=== PATIENT | male | born 1945 | race Caucasian/White ===

== ENCOUNTER 2021-04-18 16:24 | Inpatient (IN) | payer MEDICARE, OTHER ==
[~2021-04-18] VITALS: Ht 185.4 cm; Wt 78.6 kg
[~2021-04-18 16:24] MED LIST: DRON2.5C18 PO; ENOX40SY7 SQ; METO-384 PO; SIMV40TA PO
[2021-04-18] MEDS ORDERED: normal saline 1000ml 1,000 ML IV ONE ×2 (16:50→17:55)
[2021-04-18] MEDS ORDERED: pantoprazole 40 MG vial IV ONE (17:00)
[2021-04-18 17:24] LABS: EOSINOPHILS % (AUTO) 0.3 % (0-6); HEMOGLOBIN 13.5 g/dl (14.0-17.9); MONOCYTES # (AUTO) 0.3 X10'3 (0-0.9); NEUTROPHILS # (AUTO) 1.4 X10'3 (1.8-7.7); WHITE BLOOD COUNT 2.9 X10'3 (4.5-11.0)
[2021-04-18 17:25] LABS: BASOPHILS % (AUTO) 0 % (0-1); LYMPHOCYTES # (AUTO) 1.2 X10'3 (1.1-4.8); LYMPHOCYTES % (AUTO) 41.4 % (21-51); MEAN CORPUSCULAR HEMOGLOBIN 31.8 PG (27.0-31.0); MEAN CORPUSCULAR HGB CONC 33.7 g/dL (33.0-36.5); MEAN CORPUSCULAR VOLUME 94.2 FL (78-98); MEAN PLATELET VOLUME 8.8 FL (7.4-10.4); MONOCYTES % (AUTO) 11.7 % (2-12); NEUTROPHILS % (AUTO) 46.6 % (42-75); PLATELET COUNT 282 X10'3 (140-440); RED BLOOD COUNT 4.25 X10'6 (4.70-6.10); RED CELL DISTRIBUTION WIDTH 14.8 % (11.5-14.5)
[2021-04-18 17:39] LABS: ALANINE AMINOTRANSFERASE 18 U/L (12-78); ALBUMIN 1.8 G/DL (3.4-5.0); ALBUMIN/GLOBULIN RATIO 0.5 (1.1-1.5); ALKALINE PHOSPHATASE 67 IU/L (46-116); ANION GAP 10 (8-16); ASPARTATE AMINO TRANSFERASE 26 U/L (10-37); BILIRUBIN,TOTAL 0.7 MG/DL (0.1-1.0); BLOOD UREA NITROGEN 33 MG/DL (7-18); BUN/CREATININE RATIO 19.8 (5.4-32.0); CALCIUM 7.8 MG/DL (8.5-10.1); CHLORIDE 102 MMOL/L (99-107); CREATININE 1.67 MG/DL (0.60-1.10); GLUCOSE 127 MG/DL (70-104); SODIUM 135 MMOL/L (135-145); TOTAL CARBON DIOXIDE 22.8 MMOL/L (24-32); TOTAL PROTEIN 5.4 G/DL (6.4-8.2); eGFR 40 ML/MIN
[2021-04-18 17:42] LABS: POTASSIUM 3.7 MMOL/L (3.5-5.1)
[2021-04-18] MEDS ORDERED: vancomycin/NS 1 GM ADD-VANTAGE 250 ML IV ONE (17:55)
[2021-04-18] MEDS ORDERED: azithromycin/NS 500mg/250ml 250 ML IV ONE (17:55)
[2021-04-18] MEDS ORDERED: CefTRIAXone/D5W-Rocephin 1gm 50 ML IV ONE (17:55)
[2021-04-18] MEDS ORDERED: iohexol 300mg/ml 100ml inj. ONE (17:59)
[2021-04-18 18:39] LABS: PLATELET ESTIMATE NORMAL; TOTAL CELLS COUNTED 100
[2021-04-18 18:56] LABS: CLARITY,URINE SLIGHTLY CLOUDY (Clear); COLOR,URINE YELLOW (Yellow); GLUCOSE, URINE NEGATIVE (Neg); KETONES,URINE NEGATIVE (Neg); LEUKOCYTE ESTERASE ,URINE NEGATIVE (Neg); NITRITES, URINE NEGATIVE (Neg); OCCULT BLOOD,URINE NEGATIVE (Neg); PH,URINE 5.5 (4.8-8.0); PROTEIN,URINE TRACE mg/dl (Neg); UROBILINOGEN,URINE 0.2 E.U/dL (0.2-1.0)
[2021-04-18 19:10] LABS: UA COLLECTION TYPE NON-SPECIFIED
[2021-04-18 19:15] LABS: BACTERIA,URINE NONE SEEN /HPF (Neg); MUCUS STRANDS FEW /LPF (Neg); RBC,URINE NONE SEEN /HPF (0-2); SQUAMOUS EPITHELIAL CELL,UR FEW /LPF (FEW); WBC,URINE 0-4 /HPF (0-4)
[2021-04-18 19:16] LABS: COARSE GRANULAR CAST 0-3 /LPF (NEGATIVE)
[2021-04-18] MEDS ORDERED: PROC10TA10 PO (19:52)
[2021-04-18] MEDS ORDERED: METO25TA6 PO (19:52)
[2021-04-18] MEDS ORDERED: METH500T4 PO (20:03)
[2021-04-18] MEDS ORDERED: FERR325T32 PO (20:03)
[2021-04-18] MEDS ORDERED: APIX5TAB3 PO (20:03)
[2021-04-18] MEDS ORDERED: MECO10005 (20:03)
[2021-04-18] MEDS ORDERED: morphine 2 MG/ML inj. syringe IV PRN (20:10)
[2021-04-18] MEDS ORDERED: tylenol #3 (20:10)
[2021-04-18] MEDS ORDERED: potassium Cl 20 mEq SR tablet PO PRN ×2 (20:10)
[2021-04-18] MEDS ORDERED: acetaminophen 325mg tablet PO PRN ×2 (20:10)
[2021-04-18] MEDS ORDERED: ondansetron/PF 4mg/2ml inj IV PRN (20:10)
[2021-04-18] MEDS: K, MAG and/or Phos replacement - Verify level? MC SCH (20:10)
[2021-04-18] MEDS ORDERED: magnesium hydroxide 30ml (MOM) UD suspension PO PRN (20:10)
[2021-04-18] MEDS ORDERED: LIDOcaine/PRILOcaine 5gm cream TP ONE (20:10)
[2021-04-18] MEDS: metroNIDAZOLE-Flagyl 500mg/NS 100 ML IV SCH (23:59)
[2021-04-19 03:38] LABS: HEMOGLOBIN 11.5 g/dl (14.0-17.9); LYMPHOCYTES # (AUTO) 0.6 X10'3 (1.1-4.8); PLATELET COUNT 232 X10'3 (140-440); WHITE BLOOD COUNT 2.6 X10'3 (4.5-11.0)
[2021-04-19 03:40] LABS: BASOPHILS % (AUTO) 0 % (0-1); EOSINOPHILS % (AUTO) 0.3 % (0-6); HEMATOCRIT 33.5 % (42.0-52.0); LYMPHOCYTES % (AUTO) 21.7 % (21-51); MEAN CORPUSCULAR HEMOGLOBIN 31.7 PG (27.0-31.0); MEAN CORPUSCULAR HGB CONC 34.5 g/dL (33.0-36.5); MEAN CORPUSCULAR VOLUME 91.8 FL (78-98); MEAN PLATELET VOLUME 7.9 FL (7.4-10.4); MONOCYTES # (AUTO) 0.4 X10'3 (0-0.9); NEUTROPHILS # (AUTO) 1.7 X10'3 (1.8-7.7); RED BLOOD COUNT 3.65 X10'6 (4.70-6.10); RED CELL DISTRIBUTION WIDTH 14.9 % (11.5-14.5)
[2021-04-19 03:58] LABS: ALANINE AMINOTRANSFERASE 17 U/L (12-78); ALBUMIN 1.4 G/DL (3.4-5.0); ALBUMIN/GLOBULIN RATIO 0.5 (1.1-1.5); ALKALINE PHOSPHATASE 60 IU/L (46-116); ANION GAP 9 (8-16); ASPARTATE AMINO TRANSFERASE 21 U/L (10-37); BILIRUBIN,TOTAL 0.5 MG/DL (0.1-1.0); BLOOD UREA NITROGEN 28 MG/DL (7-18); BUN/CREATININE RATIO 24.8 (5.4-32.0); CALCIUM 7.1 MG/DL (8.5-10.1); CHLORIDE 108 MMOL/L (99-107); CREATININE 1.13 MG/DL (0.60-1.10); GLUCOSE 96 MG/DL (70-104); SODIUM 139 MMOL/L (135-145); TOTAL PROTEIN 4.4 G/DL (6.4-8.2); TROPONIN I < 0.04 NG/ML (0.0-0.05); eGFR 63 ML/MIN
[2021-04-19 04:01] LABS: POTASSIUM 2.6 MMOL/L (3.5-5.1)
[2021-04-19] MEDS ORDERED: potassium Cl 10 mEq/100mL bag IV ONE (04:20)
[2021-04-19 04:21] LABS: LIPASE < 50 U/L (73-393)
[2021-04-19 04:37] LABS: NEUTROPHILS % (MANUAL) 27 % (42-75); TOTAL CELLS COUNTED 100
[2021-04-19 04:38] LABS: BANDS% (MANUAL) 27 % (0-10); LYMPHOCYTES % (MANUAL) 28 % (21-51); METAMYLEOCYTES% (MANUAL) 2 % (0-0); MONOCYTES % (MANUAL) 16 % (2-12); PLATELET ESTIMATE NORMAL
[2021-04-19] MEDS ORDERED: cefepime inj. 1 GM in normal saline 100ml IV soln 100 ML IV SCH (08:00)
[2021-04-19] MEDS: K, MAG and/or Phos replacement - Verify level? MC SCH (08:00)
--- NOTE | 2021-04-19 09:07 | NUR ---
spoke with POA daughter jimbo
[2021-04-19] MEDS ORDERED: ACET-3068 PO (09:40)
--- NOTE | 2021-04-19 09:45 | NUR ---
pt refuses covid swab
[2021-04-19] MEDS: metroNIDAZOLE-Flagyl 500mg/NS 100 ML IV SCH ×2 (09:51→16:39)
[2021-04-19] MEDS ORDERED: CYAN500T46 PO (10:01)
[2021-04-19] MEDS ORDERED: ondansetron/PF 4mg/2ml inj IV PRN (11:05)
[2021-04-19] MEDS ORDERED: HYDROcodone/acetaminophen 5mg/325mg tablet PO PRN (11:05)
[2021-04-19] MEDS ORDERED: potassium Cl 40MEQ/1/2NS 520ml 520 ML IV PRN ×2 (11:05)
[2021-04-19] MEDS ORDERED: magnesium 4gm in 100ml NS 100 ML IV PRN (11:05)
[2021-04-19] MEDS ORDERED: magnesium Cl slow-release 64mg tablet PO PRN (11:05)
[2021-04-19] MEDS ORDERED: acetaminophen 325mg tablet PO PRN ×2 (11:05)
[2021-04-19] MEDS ORDERED: magnesium 2GM in 50ml NS 50 ML IV PRN (11:05)
[2021-04-19] MEDS: normal saline 1000ml 1,000 ML IV SCH (11:23)
[2021-04-19] MEDS ORDERED: proCHLORperazine 10mg tablet PO PRN (11:35)
--- NOTE | 2021-04-19 14:45 | NUR ---
Patient in room ED 5. I have received report from Jace VALLADARES RN and had the opportunity to ask questions and assume patient care.
[2021-04-19 18:02] VITALS: BP 75/37
--- NOTE | 2021-04-19 18:14 | NUR ---
Patient in room PCU 3023. I have received report from Rachana CHAVARRIA and had the opportunity to ask questions and assume patient care.
--- NOTE | 2021-04-19 18:37 | NUR ---
Patient in room PCU 3023. I have received report from Sofia CHAVARRIA and had the opportunity to ask questions and assume patient care.
[2021-04-19] MEDS: K and/or MAG REPLACEMENT MC SCH (20:00)
[2021-04-19] MEDS ORDERED: temazepam 15mg capsule PO PRN (21:00)
[2021-04-19 22:00] VITALS: BP 117/77
[2021-04-19] MEDS: heparin, porcine 5000 units/ml vial SQ SCH (22:02)
[2021-04-19] MEDS: cefepime 1GM/NS ADD-VANTAGE 100 ML IV SCH (22:07)
[2021-04-20] MEDS: metroNIDAZOLE-Flagyl 500mg/NS 100 ML IV SCH ×3 (00:34→16:03)
[2021-04-20 02:00] VITALS: BP 118/73
[2021-04-20] MEDS: potassium Cl 20 mEq SR tablet PO PRN ×3 (03:42→18:05)
[2021-04-20 06:00] VITALS: BP 103/67
--- NOTE | 2021-04-20 06:58 | NUR ---
Patient in room PCU 3023. I have received report from Yamilex CHAVARRIA and had the opportunity to ask questions and assume patient care.
[2021-04-20] MEDS: normal saline 1000ml 1,000 ML IV SCH ×2 (07:05→16:05)
[2021-04-20 07:20] LABS: HEMOGLOBIN 11.3 g/dl (14.0-17.9); RED CELL DISTRIBUTION WIDTH 15.5 % (11.5-14.5)
[2021-04-20 07:22] LABS: HEMATOCRIT 32.7 % (42.0-52.0); MEAN CORPUSCULAR HGB CONC 34.7 g/dL (33.0-36.5); MEAN CORPUSCULAR VOLUME 92.3 FL (78-98); MEAN PLATELET VOLUME 8.3 FL (7.4-10.4); PLATELET COUNT 264 X10'3 (140-440); RED BLOOD COUNT 3.54 X10'6 (4.70-6.10); WHITE BLOOD COUNT 5.9 X10'3 (4.5-11.0)
[2021-04-20 07:48] LABS: ANISOCYTOSIS 1+; PLATELET ESTIMATE NORMAL; TOTAL CELLS COUNTED 100
[2021-04-20] MEDS: cefepime 1GM/NS ADD-VANTAGE 100 ML IV SCH (07:48)
[2021-04-20] MEDS: heparin, porcine 5000 units/ml vial SQ SCH ×2 (07:48→20:00)
[2021-04-20 07:53] LABS: ALANINE AMINOTRANSFERASE 14 U/L (12-78); ALBUMIN 1.3 G/DL (3.4-5.0); ALBUMIN/GLOBULIN RATIO 0.4 (1.1-1.5); ALKALINE PHOSPHATASE 69 IU/L (46-116); ANION GAP 14 (8-16); ASPARTATE AMINO TRANSFERASE 17 U/L (10-37); BILIRUBIN,TOTAL 0.5 MG/DL (0.1-1.0); BLOOD UREA NITROGEN 26 MG/DL (7-18); BUN/CREATININE RATIO 25.5 (5.4-32.0); CALCIUM 7.6 MG/DL (8.5-10.1); CHLORIDE 109 MMOL/L (99-107); CREATININE 1.02 MG/DL (0.60-1.10); GLUCOSE 95 MG/DL (70-104); MAGNESIUM 2.5 MG/DL (1.5-2.4); POTASSIUM 3.4 MMOL/L (3.5-5.1); SODIUM 142 MMOL/L (135-145); TOTAL CARBON DIOXIDE 19.5 MMOL/L (24-32); TOTAL PROTEIN 4.5 G/DL (6.4-8.2); eGFR 71 ML/MIN
[2021-04-20] MEDS: K and/or MAG REPLACEMENT MC SCH ×2 (08:00→20:00)
--- NOTE | 2021-04-20 08:07 | NUR ---
Problems reprioritized. Patient report given, questions answered & plan of care reviewed with Anca CHAVARRIA.
--- NOTE | 2021-04-20 10:44 | NUR ---
spoke with pt's daughter Soraida Shelton via phone call, update given.
[2021-04-20 11:00] VITALS: BP 110/70
--- NOTE | 2021-04-20 13:05 | NUR ---
Malnutrition consult: Pt with h/o colon cancer s/p colectomy and currently receiving chemotherapy admit for hypokalemia and enteritis. Pt reports 14-23 lb wt loss with decreased appetite per malnutrition risk screen with RN. Noted pt recently admitted with a scaled wt range of 147-165 lbs from 12/27-01/06; current bed scaled wt is 147 lbs. Pt seen at bedside reports ~40 lb wt loss since last admit and reports just eating so-so [employer]. Of note, pt reports very poor appetite [employer]BER per H&P. Pt initially on a clear liquid diet documented with 75% PO intake first meal down to 25% PO intake second meal. Diet has just been advanced to full liquids, lunch tray visible at bedside appears untouched though pt states he will attempt to eat. Pt with visible fat and muscle wasting throughout face and clavicles, meeting the minimum of two criteria for malnutrition. Pt agrees to Ensure Enlive during admit as well as shakes and smoothies to optimize PO intake. ONS to be sent pending physician approval in EMR. Pt provided with ONS coupons and RD contact information and encouraged to reach out if needed. Will continue to follow closely. Recommendations: 1) Advance to regular diet as medically indicated 2) Chocolate Ensure Enlive BIDBD, pending physician approval in EMR 3) [place] banana smoothie WB, chocolate shake BIDLD 4) Bowel care per rx 5) Weekly scaled weights Addendum: 04/20/21 at [address] Amended: Links added.
[2021-04-20 15:00] VITALS: BP 115/71
[2021-04-20 17:23] VITALS: BP 115/71
--- NOTE | 2021-04-20 17:37 | NUR ---
PAGER ID: [phone] MESSAGE: re: Alverto Jacobson room [id number] May we d/c accuchecks? Pt's blood glucose via labs 04/19 was 96, today was 95. thank you, Anca [phone]
--- NOTE | 2021-04-20 17:39 | NUR ---
phone call from Dr Katz, orders received to d/c accuchecks. Also advised Dr that pt inadvertently just pulled out his PIV, cath intact. Will have restarted. will continue to monitor.
[2021-04-20] MEDS: lactose-reduced food (Ensure Enlive) - 237ml bottle PO SCH (18:05)
--- NOTE | 2021-04-20 18:33 | NUR ---
Problems reprioritized. Patient report given, questions answered & plan of care reviewed with Hazel CHAVARRIA.
[2021-04-20 23:30] VITALS: BP 131/90
[2021-04-21 06:39] LABS: ALANINE AMINOTRANSFERASE 15 U/L (12-78); ALBUMIN 1.6 G/DL (3.4-5.0); ALBUMIN/GLOBULIN RATIO 0.4 (1.1-1.5); ALKALINE PHOSPHATASE 80 IU/L (46-116); ANION GAP 18 (8-16); ASPARTATE AMINO TRANSFERASE 14 U/L (10-37); BILIRUBIN,TOTAL 0.5 MG/DL (0.1-1.0); BLOOD UREA NITROGEN 29 MG/DL (7-18); BUN/CREATININE RATIO 18.4 (5.4-32.0); CALCIUM 8.4 MG/DL (8.5-10.1); CHLORIDE 113 MMOL/L (99-107); CREATININE 1.58 MG/DL (0.60-1.10); GLUCOSE 166 MG/DL (70-104); MAGNESIUM 2.8 MG/DL (1.5-2.4); SODIUM 147 MMOL/L (135-145); TOTAL CARBON DIOXIDE 15.7 MMOL/L (24-32); TOTAL PROTEIN 5.2 G/DL (6.4-8.2); eGFR 43 ML/MIN
[2021-04-21 06:43] LABS: HEMOGLOBIN 13.5 g/dl (14.0-17.9); MEAN CORPUSCULAR HEMOGLOBIN 31.7 PG (27.0-31.0); MEAN PLATELET VOLUME 8.7 FL (7.4-10.4)
[2021-04-21 06:44] LABS: HEMATOCRIT 39.6 % (42.0-52.0); MEAN CORPUSCULAR VOLUME 93.3 FL (78-98); PLATELET COUNT 378 X10'3 (140-440); RED BLOOD COUNT 4.25 X10'6 (4.70-6.10); RED CELL DISTRIBUTION WIDTH 16.4 % (11.5-14.5); WHITE BLOOD COUNT 11.2 X10'3 (4.5-11.0)
[2021-04-21 07:26] LABS: TOTAL CELLS COUNTED 100
[2021-04-21 07:27] LABS: ANISOCYTOSIS 1+; PLATELET ESTIMATE NORMAL; ROULEAUX 1+; SMUDGE CELLS FEW
[2021-04-21] MEDS: lactose-reduced food (Ensure Enlive) - 237ml bottle PO SCH ×2 (07:30→17:30)
[2021-04-21 08:00] VITALS: BP 125/80
[2021-04-21] MEDS: K and/or MAG REPLACEMENT MC SCH ×2 (08:00→20:00)
[2021-04-21] MEDS: metroNIDAZOLE-Flagyl 500mg/NS 100 ML IV SCH ×2 (08:00→11:03)
[2021-04-21] MEDS: potassium Cl 20 mEq SR tablet PO PRN ×3 (10:55→23:12)
[2021-04-21] MEDS: ciprofloxacin lact 400MG/200ML 200 ML IV SCH ×2 (12:37→23:11)
[2021-04-21] MEDS: heparin, porcine 5000 units/ml vial SQ SCH ×2 (12:38→23:11)
[2021-04-21 15:00] VITALS: BP 116/72
[2021-04-21] MEDS: lactobacillus rhamnosus 10,000 MMU CELLS/CAPSULE PO SCH (23:13)
[2021-04-22] VITALS (7 sets, daily range): BP systolic 104–127; BP diastolic 66–87
[2021-04-22] MEDS: ciprofloxacin lact 400MG/200ML 200 ML IV SCH ×2 (00:13→07:46)
[2021-04-22] MEDS: metroNIDAZOLE-Flagyl 500mg/NS 100 ML IV SCH ×2 (03:45→11:17)
[2021-04-22] MEDS: normal saline 1000ml 1,000 ML IV SCH (03:49)
--- NOTE | 2021-04-22 03:54 | NUR ---
Patient pulled out IV and his Cipro and Flagyl were off. Patient received his Cipro at 0013 and his Flagyl at 0345.
[2021-04-22 06:40] LABS: HEMOGLOBIN 13.5 g/dl (14.0-17.9)
[2021-04-22 06:41] LABS: HEMATOCRIT 39.2 % (42.0-52.0); MEAN CORPUSCULAR HEMOGLOBIN 32.1 PG (27.0-31.0); MEAN CORPUSCULAR HGB CONC 34.4 g/dL (33.0-36.5); MEAN CORPUSCULAR VOLUME 93.5 FL (78-98); MEAN PLATELET VOLUME 8.4 FL (7.4-10.4); PLATELET COUNT 300 X10'3 (140-440); RED CELL DISTRIBUTION WIDTH 16.7 % (11.5-14.5); WHITE BLOOD COUNT 7.3 X10'3 (4.5-11.0)
[2021-04-22 06:49] LABS: ALANINE AMINOTRANSFERASE 13 U/L (12-78); ALBUMIN 1.5 G/DL (3.4-5.0); ALBUMIN/GLOBULIN RATIO 0.5 (1.1-1.5); ALKALINE PHOSPHATASE 72 IU/L (46-116); ASPARTATE AMINO TRANSFERASE 16 U/L (10-37); BILIRUBIN,TOTAL 0.4 MG/DL (0.1-1.0); BLOOD UREA NITROGEN 29 MG/DL (7-18); BUN/CREATININE RATIO 21.2 (5.4-32.0); CALCIUM 8.8 MG/DL (8.5-10.1); CHLORIDE 121 MMOL/L (99-107); CREATININE 1.37 MG/DL (0.60-1.10); GLUCOSE 127 MG/DL (70-104); MAGNESIUM 2.4 MG/DL (1.5-2.4); TOTAL CARBON DIOXIDE 15.4 MMOL/L (24-32); TOTAL PROTEIN 4.6 G/DL (6.4-8.2); eGFR 51 ML/MIN
--- NOTE | 2021-04-22 07:05 | NUR ---
Patient in room PCU 3023. I have received report from Alia Gupta and had the opportunity to ask questions and assume patient care.
[2021-04-22 07:07] LABS: ANION GAP 14 (8-16); POTASSIUM 3.2 MMOL/L (3.5-5.1); SODIUM 150 MMOL/L (135-145)
--- NOTE | 2021-04-22 07:26 | NUR ---
Spoke with Pharmacist to retime Flagyl IV dose since pt ripped IV out in the night causing his HS dose to be given late. Per Pharmacisit Thomas Give flagyl dose at 1000 instead of 0800.
[2021-04-22] MEDS: lactobacillus rhamnosus 10,000 MMU CELLS/CAPSULE PO SCH ×2 (07:46→19:41)
[2021-04-22] MEDS: potassium Cl 20 mEq SR tablet PO PRN ×2 (07:47→22:19)
[2021-04-22] MEDS: K and/or MAG REPLACEMENT MC SCH (07:47)
[2021-04-22] MEDS: heparin, porcine 5000 units/ml vial SQ SCH ×2 (07:47→19:42)
--- NOTE | 2021-04-22 07:56 | NUR ---
Problems reprioritized. Patient report given, questions answered & plan of care reviewed with DEON Tobar.
[2021-04-22 08:04] LABS: ANISOCYTOSIS 1+; NUCLEATED RED BLOOD CELLS 1 /100WBC (0-0); PLATELET ESTIMATE NORMAL; TOTAL CELLS COUNTED 100
[2021-04-22 08:05] LABS: BURR CELLS FEW; POLYCHROMASIA FEW
[2021-04-22] MEDS: lactose-reduced food (Ensure Enlive) - 237ml bottle PO SCH ×2 (08:08→17:49)
[2021-04-22] MEDS: dextrose 5%-water 1,000 ML IV SCH (12:49)
--- NOTE | 2021-04-22 14:26 | NUR ---
PAGER ID: [phone] MESSAGE: Amadou COVARRUBIASU ext [phone]. [phone]. replacement protocol discontinued today? Pt's K+ 3.2 today Can I restart the potassium replacement protocol? Thank you
--- NOTE | 2021-04-22 18:29 | NUR ---
Problems reprioritized. Patient report given, questions answered & plan of care reviewed with Jessika CHAVARRIA.
[2021-04-22] MEDS: ferrous sulfate 325mg tablet PO SCH (19:41)
[2021-04-22] MEDS: cyanocobalamin 500mcg tablet PO SCH (19:41)
--- NOTE | 2021-04-22 20:00 | NUR ---
Pt has sinus tach 110-120 junctional Rythym, potassium level 3.2, no k protocol in place, Called Dr gabriel who reinstated the k protocol.
[2021-04-22] MEDS ORDERED: magnesium Cl slow-release 64mg tablet PO PRN (20:05)
[2021-04-22] MEDS ORDERED: potassium Cl 40MEQ/1/2NS 520ml 520 ML IV PRN ×3 (20:05→20:10)
[2021-04-22] MEDS ORDERED: potassium Cl 20 mEq SR tablet PO PRN ×2 (20:10)
[2021-04-22] MEDS ORDERED: ciprofloxacin 250mg tablet PO SCH (22:00)
[2021-04-23] MEDS: metroNIDAZOLE 500mg tablet PO SCH ×2 (00:07→08:25)
[2021-04-23 02:00] VITALS: BP 113/77
[2021-04-23 06:00] VITALS: BP 126/66
--- NOTE | 2021-04-23 06:09 | NUR ---
Problems reprioritized. Patient report given, questions answered & plan of care reviewed with Kristel.
--- NOTE | 2021-04-23 06:30 | NUR ---
Patient in room PCU 3023. I have received report from Jessika CHAVARRIA and had the opportunity to ask questions and assume patient care.
[2021-04-23 06:40] LABS: BASOPHILS % (AUTO) 0.1 % (0-1); EOSINOPHILS % (AUTO) 0.1 % (0-6); LYMPHOCYTES # (AUTO) 1.1 X10'3 (1.1-4.8); MEAN PLATELET VOLUME 8.6 FL (7.4-10.4); PLATELET COUNT 283 X10'3 (140-440)
[2021-04-23 06:41] LABS: HEMATOCRIT 42.5 % (42.0-52.0); LYMPHOCYTES % (AUTO) 11.1 % (21-51); MEAN CORPUSCULAR HEMOGLOBIN 31.7 PG (27.0-31.0); MEAN CORPUSCULAR HGB CONC 32.9 g/dL (33.0-36.5); MEAN CORPUSCULAR VOLUME 96.4 FL (78-98); MONOCYTES # (AUTO) 0.9 X10'3 (0-0.9); MONOCYTES % (AUTO) 8.8 % (2-12); NEUTROPHILS # (AUTO) 8.1 X10'3 (1.8-7.7); NEUTROPHILS % (AUTO) 79.9 % (42-75); RED BLOOD COUNT 4.41 X10'6 (4.70-6.10); RED CELL DISTRIBUTION WIDTH 17.9 % (11.5-14.5); WHITE BLOOD COUNT 10.1 X10'3 (4.5-11.0)
[2021-04-23 06:56] LABS: ALANINE AMINOTRANSFERASE 13 U/L (12-78); ALBUMIN 1.5 G/DL (3.4-5.0); ALBUMIN/GLOBULIN RATIO 0.5 (1.1-1.5); ALKALINE PHOSPHATASE 80 IU/L (46-116); ANION GAP 15 (8-16); ASPARTATE AMINO TRANSFERASE 20 U/L (10-37); BILIRUBIN,TOTAL 0.4 MG/DL (0.1-1.0); BLOOD UREA NITROGEN 31 MG/DL (7-18); BUN/CREATININE RATIO 19.9 (5.4-32.0); CALCIUM 9.3 MG/DL (8.5-10.1); CHLORIDE 124 MMOL/L (99-107); CREATININE 1.56 MG/DL (0.60-1.10); GLUCOSE 111 MG/DL (70-104); MAGNESIUM 2.6 MG/DL (1.5-2.4); POTASSIUM 3.4 MMOL/L (3.5-5.1); SODIUM 150 MMOL/L (135-145); TOTAL PROTEIN 4.6 G/DL (6.4-8.2); eGFR 44 ML/MIN
[2021-04-23 07:15] LABS: TOTAL CARBON DIOXIDE 10.9 MMOL/L (24-32)
--- NOTE | 2021-04-23 07:43 | NUR ---
Paged Dr. Early regarding critical lab value. PAGER ID: [phone] MESSAGE: [phone] Alverto Jacobson. Critical lab value CO2 10.9. PCU Crystal
[2021-04-23] MEDS: METHYLCELLULOSE 500 MG PO SCH (08:00)
[2021-04-23] MEDS: K and/or MAG REPLACEMENT MC SCH ×2 (08:17→20:00)
[2021-04-23 08:24] LABS: ANISOCYTOSIS 1+; NUCLEATED RED BLOOD CELLS 5 /100WBC (0-0); PLATELET ESTIMATE NORMAL; TOTAL CELLS COUNTED 100
[2021-04-23] MEDS: dextrose 5%-water 1,000 ML IV SCH (08:24)
[2021-04-23] MEDS: lactose-reduced food (Ensure Enlive) - 237ml bottle PO SCH ×2 (08:24→18:25)
[2021-04-23] MEDS: atorvastatin 20mg tablet PO SCH (08:25)
[2021-04-23] MEDS: ferrous sulfate 325mg tablet PO SCH ×2 (08:25→20:14)
[2021-04-23] MEDS: potassium Cl 20 mEq SR tablet PO PRN ×3 (08:25→20:14)
[2021-04-23] MEDS: cyanocobalamin 500mcg tablet PO SCH ×2 (08:25→20:15)
[2021-04-23] MEDS: lactobacillus rhamnosus 10,000 MMU CELLS/CAPSULE PO SCH ×2 (08:25→20:15)
[2021-04-23] MEDS: metoprolol tartrate 25mg tablet PO SCH (08:26)
[2021-04-23] MEDS: heparin, porcine 5000 units/ml vial SQ SCH ×2 (08:26→20:15)
[2021-04-23 11:00] VITALS: BP 82/58
[2021-04-23 11:06] LABS: ABG BASE EXCESS -20.2 mmol/L (-2.0-2.0); ABG HCO3 5.8 mmol/L (22.0-26.0); ABG OXYGEN SATURATION 98.5 % (94-97); ABG PCO2 (T) 15.5 mmHg (35.0-48.0); ABG PO2 (T) 145.9 mmHg (75.0-100.0); ALLEN'S TEST POSITIVE; FCOHb 0.2 % (0.0-3.9); FLOW 3 L/min; FMetHb 0.3 % (0.0-1.5); PATIENT TEMPERATURE 36.7; TOTAL HEMOGLOBIN 13.8 G/dl (14.0-18.0)
--- NOTE | 2021-04-23 11:15 | NUR ---
Paged Dr. Early PAGER ID: [phone] MESSAGE: [id number] Alverto Jacobson. Cindy in. chest xray done. Headed to CT now. KERMIT Dc
[2021-04-23] MEDS: ciprofloxacin lact 400MG/200ML 200 ML IV SCH ×2 (11:38→20:14)
[2021-04-23] MEDS: sodium bicarbonate (8.4%) inj. 50 MEQ in dextrose 5%-water 1,000 ML IV SCH ×2 (11:38→21:15)
--- NOTE | 2021-04-23 13:25 | NUR ---
PAGER ID: [phone] MESSAGE: [phone] Alverto Jacobson. Patients IV infiltrated. Deepika try 3 times. Hansel looked and no IV placement was successful. I ask PICC RN, not sure when she can. Can you switch IV antibiotics back to PO until we get access? Please thank marlon Dc
--- NOTE | 2021-04-23 13:56 | NUR ---
Paged Dr. Early regarding IV meds PAGER ID: [phone] MESSAGE: [phone] Alverto Jacobson. Do we want to start patient on sodium bicarb PO and PO antibiotics, until PICC nurse can place IVs? PCU Crystal
--- NOTE | 2021-04-23 14:03 | NUR ---
Reassessment: Pt continues on Full liquid diet w/ additional ONS plus smoothies and shakes. PO intake remains low, avg 27% x 5 meals and 45% x 5 ONS not meeting needs. Discussed w/ RN that current diet order is not adequate and pt may benefit from advancing to regular diet if medically feasible, though pt s/p Rapid Response today. No new nutritional interventions implemented at this time, will continue to monitor. Recommendations: 1) Advance to regular diet as medically indicated 2) Chocolate Ensure Enlive BIDBD, pending physician approval in EMR 3) [place] banana smoothie WB, chocolate shake BIDLD 4) Bowel care per rx 5) Weekly scaled weights Addendum: 04/23/21 at [address] Amended: Links added.
[2021-04-23 15:00] VITALS: BP 80/56
--- NOTE | 2021-04-23 15:18 | NUR ---
PAGER ID: [phone] MESSAGE: [phone] Alverto Jacobson. Patients needs an IJ. U Crystal
--- NOTE | 2021-04-23 15:54 | NUR ---
Paged Dr. Early PAGER ID: [phone] MESSAGE: [phone] Alverto Jacobson. BP 66/47, 77/48, 80/56. Patient BP is low but trending up. Olivier martines. U Crystal
[2021-04-23] MEDS ORDERED: normal saline 1000ml 1,000 ML IV ONE ×2 (16:10→16:50)
[2021-04-23] MEDS: metroNIDAZOLE-Flagyl 500mg/NS 100 ML IV SCH (17:06)
[2021-04-23 18:00] VITALS: BP 101/68
--- NOTE | 2021-04-23 18:25 | NUR ---
Problems reprioritized. Patient report given, questions answered & plan of care reviewed with Jessika RN. Patient stable at transfer of care.
--- NOTE | 2021-04-23 19:46 | NUR ---
called dr Katz, concerning lactic acid at 5.1. stated that she knew this pt and no new orders
[2021-04-23 22:00] VITALS: BP 90/50
[2021-04-24] VITALS (12 sets, daily range): BP systolic 81–109; BP diastolic 48–63
[2021-04-24] MEDS: diatr meglu/diatrizoate 30ml oral sol.-(3 dose) bottle PO SCH ×3 (00:49→20:52)
[2021-04-24] MEDS: metroNIDAZOLE-Flagyl 500mg/NS 100 ML IV SCH ×4 (00:50→23:08)
[2021-04-24 06:24] LABS: BASOPHILS % (AUTO) 0.1 % (0-1); EOSINOPHILS # (AUTO) 0.1 X10'3 (0-0.9); LYMPHOCYTES # (AUTO) 1.1 X10'3 (1.1-4.8)
[2021-04-24 06:25] LABS: EOSINOPHILS % (AUTO) 0.7 % (0-6); HEMATOCRIT 40.1 % (42.0-52.0); HEMOGLOBIN 13.1 g/dl (14.0-17.9); LYMPHOCYTES % (AUTO) 14.9 % (21-51); MEAN CORPUSCULAR HEMOGLOBIN 32.1 PG (27.0-31.0); MEAN CORPUSCULAR HGB CONC 32.7 g/dL (33.0-36.5); MEAN CORPUSCULAR VOLUME 98.4 FL (78-98); MONOCYTES # (AUTO) 0.6 X10'3 (0-0.9); MONOCYTES % (AUTO) 7.4 % (2-12); NEUTROPHILS # (AUTO) 5.8 X10'3 (1.8-7.7); NEUTROPHILS % (AUTO) 76.9 % (42-75); PLATELET COUNT 268 X10'3 (140-440); RED BLOOD COUNT 4.07 X10'6 (4.70-6.10); RED CELL DISTRIBUTION WIDTH 18.3 % (11.5-14.5); WHITE BLOOD COUNT 7.6 X10'3 (4.5-11.0)
--- NOTE | 2021-04-24 06:27 | NUR ---
Patient in room PCU 3023. I have received report from DEON Rosen and had the opportunity to ask questions and assume patient care.
[2021-04-24 06:36] LABS: ALANINE AMINOTRANSFERASE 9 U/L (12-78); ALBUMIN 1.3 G/DL (3.4-5.0); ALBUMIN/GLOBULIN RATIO 0.4 (1.1-1.5); ALKALINE PHOSPHATASE 75 IU/L (46-116); ANION GAP 17 (8-16); ASPARTATE AMINO TRANSFERASE 21 U/L (10-37); BILIRUBIN,TOTAL 0.3 MG/DL (0.1-1.0); BLOOD UREA NITROGEN 36 MG/DL (7-18); BUN/CREATININE RATIO 18.2 (5.4-32.0); CALCIUM 8.5 MG/DL (8.5-10.1); CHLORIDE 125 MMOL/L (99-107); CREATININE 1.98 MG/DL (0.60-1.10); GLUCOSE 78 MG/DL (70-104); MAGNESIUM 2.6 MG/DL (1.5-2.4); SODIUM 154 MMOL/L (135-145); TOTAL PROTEIN 4.2 G/DL (6.4-8.2); eGFR 33 ML/MIN
[2021-04-24 06:43] LABS: TOTAL CARBON DIOXIDE 12.5 MMOL/L (24-32)
[2021-04-24 06:44] LABS: POTASSIUM 3.7 MMOL/L (3.5-5.1)
--- NOTE | 2021-04-24 06:54 | NUR ---
Paged Dr Katz PAGER ID: [phone] MESSAGE: Alverto Wilson [id number] Critical venous C02 12.5, up from 10.9. Thank you Rita [phone]
[2021-04-24] MEDS: sodium bicarbonate (8.4%) inj. 50 MEQ in dextrose 5%-water 1,000 ML IV SCH ×3 (07:04→21:15)
[2021-04-24] MEDS: lactose-reduced food (Ensure Enlive) - 237ml bottle PO SCH ×2 (07:30→17:39)
[2021-04-24] MEDS: K and/or MAG REPLACEMENT MC SCH ×2 (08:00→19:16)
[2021-04-24] MEDS: METHYLCELLULOSE 500 MG PO SCH (08:00)
[2021-04-24] MEDS: metoprolol tartrate 25mg tablet PO SCH (08:00)
[2021-04-24] MEDS: ciprofloxacin lact 400MG/200ML 200 ML IV SCH ×2 (09:17→20:21)
[2021-04-24] MEDS: cyanocobalamin 500mcg tablet PO SCH ×2 (09:18→20:00)
[2021-04-24] MEDS: atorvastatin 20mg tablet PO SCH (09:18)
[2021-04-24] MEDS: lactobacillus rhamnosus 10,000 MMU CELLS/CAPSULE PO SCH ×2 (09:18→20:00)
[2021-04-24] MEDS: heparin, porcine 5000 units/ml vial SQ SCH ×2 (09:19→19:35)
[2021-04-24] MEDS: ferrous sulfate 325mg tablet PO SCH ×2 (09:20→20:00)
[2021-04-24 09:50] LABS: ABG BASE EXCESS -15.7 mmol/L (-2.0-2.0); ABG OXYGEN SATURATION 98.5 % (94-97); ABG PCO2 (T) 12.5 mmHg (35.0-48.0); ABG PO2 (T) 129.3 mmHg (75.0-100.0); ALLEN'S TEST POSITIVE; FMetHb 0.3 % (0.0-1.5); FO2Hb 98.2 % (94-97); PATIENT TEMPERATURE 36.1
--- NOTE | 2021-04-24 10:06 | NUR ---
Page PICC nurse Re Alverto Jacobson [phone] Pt needs PICC line please. Thank you [phone]
[2021-04-24] MEDS ORDERED: normal saline 500ml IV soln 500 ML IV ONE (11:10)
--- NOTE | 2021-04-24 11:42 | NUR ---
Paged Dr Early PAGER ID: [phone] MESSAGE: Alverto Wilson [id number] FYI Pt's daughter Soraida is at bedside. Thank you Rita [phone]
--- NOTE | 2021-04-24 13:00 | NUR ---
Paged Vascular Re Alverto Jacobson [phone] Pt needs STAT ultrasound of R arm. Thanks Rita [phone]
[2021-04-24] MEDS ORDERED: normal saline 1000ml 1,000 ML IVB ONE (13:05)
[2021-04-24 13:30] LABS: ANISOCYTOSIS 2+; NUCLEATED RED BLOOD CELLS 20 /100WBC (0-0); PLATELET ESTIMATE NORMAL; TOTAL CELLS COUNTED 100
[2021-04-24 13:31] LABS: TOXIC GRANULATION 2+
[2021-04-24 13:32] LABS: POLYCHROMASIA 1+; TOXIC VACUOLATION 1+
[2021-04-24 13:33] LABS: SMUDGE CELLS 3+
--- NOTE | 2021-04-24 14:31 | NUR ---
Problems reprioritized. Patient report given, questions answered & plan of care reviewed with DEON Ruelas.
--- NOTE | 2021-04-24 14:31 | NUR ---
Patient in room PCU 3023. I have received report from Rita CHAVARRIA and had the opportunity to ask questions and assume patient care.
--- NOTE | 2021-04-24 15:50 | NUR ---
Transferred pt to ICU room 2038 per MD orders. Jessenia, RN at bedside, helped transfer pt to bed with 4 person slide assist. All pt belongings sent with pt. Called Soraida (daughter) to inform of the transfer. PICC nurse was on floor, she said she would get a PICC line in when she can.
[2021-04-24] MEDS ORDERED: MIDAZolam 1mg/ml 10ml vial IV ONE (16:00)
[2021-04-24] MEDS ORDERED: midazolam 1 mg/ML 2ml injection ONE (16:02)
[2021-04-24] MEDS ORDERED: midazolam 1 mg/ML 2ml injection IV ONE (16:05)
--- NOTE | 2021-04-24 17:01 | NUR ---
CVP is 2, informed Dr. Mustafa. gave order for 1 liter bolus of Normal Saline.
[2021-04-24] MEDS ORDERED: normal saline 1000ml 1,000 ML IV ONE ×2 (17:15→18:35)
[2021-04-24 17:52] LABS: OXYGEN SATURATION (MIXED VEN) 61.9 % (60-80); PO2 MIXED VENOUS (TEMP COR) 31.1 mmHg (35-46)
--- NOTE | 2021-04-24 18:13 | NUR ---
CVP is a 5 after bolus Addendum: 04/24/21 at 1814 by Gonzalo Vasquez RN continuing with fluid resuscitation
--- NOTE | 2021-04-24 18:30 | NUR ---
Informed Dr. Mustafa of CVP 5 after bolus. MD ordered another 1 liter bolus of NS
--- NOTE | 2021-04-24 18:34 | NUR ---
Problems reprioritized. Patient report given, questions answered & plan of care reviewed with Phoebe CHAVARRIA.
--- NOTE | 2021-04-24 18:35 | NUR ---
Patient in room ICU 2038. I have received report from Jessenia CHAVARRIA at bedside and had the opportunity to ask questions and assume patient care.
--- NOTE | 2021-04-24 20:53 | NUR ---
Called & left a voicemail for Dr. Clarke regarding to patient's CVP 1-3. No call back yet for any order.
--- NOTE | 2021-04-24 20:53 | NUR ---
Patient was unable to swallow PO meds.
[2021-04-24] MEDS ORDERED: midodrine tablet 2.5 MG TABLET PO PRN (21:05)
--- NOTE | 2021-04-24 21:06 | NUR ---
Dr. Clarke called back & gave an order of 10mg Midodrine q8h PRN for MAP<65.
[2021-04-25] VITALS (22 sets, daily range): BP systolic 76–116; BP diastolic 41–60
--- NOTE | 2021-04-25 01:15 | NUR ---
Right upper arm extended PIV removed, catheter intact.
[2021-04-25] MEDS: sodium bicarbonate (8.4%) inj. 50 MEQ in dextrose 5%-water 1,000 ML IV SCH ×5 (02:19→23:14)
[2021-04-25 03:14] LABS: EOSINOPHILS # (AUTO) 0.1 X10'3 (0-0.9); LYMPHOCYTES # (AUTO) 0.9 X10'3 (1.1-4.8); MEAN CORPUSCULAR VOLUME 95.5 FL (78-98); NEUTROPHILS # (AUTO) 3.8 X10'3 (1.8-7.7); PLATELET COUNT 179 X10'3 (140-440)
[2021-04-25 03:18] LABS: BASOPHILS % (AUTO) 0.1 % (0-1); EOSINOPHILS % (AUTO) 1.1 % (0-6); HEMATOCRIT 30.3 % (42.0-52.0); HEMOGLOBIN 10.2 g/dl (14.0-17.9); MEAN CORPUSCULAR HEMOGLOBIN 32.2 PG (27.0-31.0); MEAN CORPUSCULAR HGB CONC 33.7 g/dL (33.0-36.5); MEAN PLATELET VOLUME 8.8 FL (7.4-10.4); MONOCYTES # (AUTO) 0.3 X10'3 (0-0.9); MONOCYTES % (AUTO) 6.1 % (2-12); NEUTROPHILS % (AUTO) 74.7 % (42-75); RED BLOOD COUNT 3.17 X10'6 (4.70-6.10); RED CELL DISTRIBUTION WIDTH 17.4 % (11.5-14.5)
[2021-04-25 03:44] LABS: ALANINE AMINOTRANSFERASE 16 U/L (12-78); ALBUMIN/GLOBULIN RATIO 0.4 (1.1-1.5); ALKALINE PHOSPHATASE 58 IU/L (46-116); ANION GAP 13 (8-16); ASPARTATE AMINO TRANSFERASE 14 U/L (10-37); BILIRUBIN,TOTAL 0.4 MG/DL (0.1-1.0); BLOOD UREA NITROGEN 34 MG/DL (7-18); BUN/CREATININE RATIO 15.8 (5.4-32.0); CHLORIDE 123 MMOL/L (99-107); CREATININE 2.15 MG/DL (0.60-1.10); GLUCOSE 133 MG/DL (70-104); SODIUM 149 MMOL/L (135-145); TOTAL PROTEIN 3.4 G/DL (6.4-8.2); eGFR 30 ML/MIN
[2021-04-25 03:48] LABS: POTASSIUM 2.6 MMOL/L (3.5-5.1); TOTAL CARBON DIOXIDE 13.4 MMOL/L (24-32)
[2021-04-25 04:26] LABS: BANDS% (MANUAL) 8 % (0-10); EOSINOPHILS % (MANUAL) 1 % (0-6); LYMPHOCYTES % (MANUAL) 15 % (21-51); METAMYLEOCYTES% (MANUAL) 2 % (0-0); MONOCYTES % (MANUAL) 9 % (2-12); NEUTROPHILS % (MANUAL) 65 % (42-75); TOTAL CELLS COUNTED 100
[2021-04-25 04:27] LABS: ANISOCYTOSIS 1+; NUCLEATED RED BLOOD CELLS 16 /100WBC (0-0); PLATELET ESTIMATE NORMAL
[2021-04-25] MEDS ORDERED: ringers solution, lacted 1,000 ML IV ONE (04:45)
--- NOTE | 2021-04-25 04:48 | NUR ---
Dr. Ortiz gave an order of 1 time LR 1L bolus due to patient's low BP & CVP of 1-4
[2021-04-25] MEDS: potassium Cl 40MEQ/250ML bag 270 ML IV PRN ×4 (05:11→17:46)
--- NOTE | 2021-04-25 05:59 | NUR ---
CVP 5 , BP 85/59 after 1L of LR bolus.
--- NOTE | 2021-04-25 06:36 | NUR ---
Problems reprioritized. Patient report given, questions answered & plan of care reviewed with Maurice CHAVARRIA at bedside.
[2021-04-25] MEDS: lactose-reduced food (Ensure Enlive) - 237ml bottle PO SCH (07:30)
[2021-04-25] MEDS: metroNIDAZOLE-Flagyl 500mg/NS 100 ML IV SCH ×3 (07:54→23:14)
[2021-04-25] MEDS: ciprofloxacin lact 400MG/200ML 200 ML IV SCH ×2 (07:54→19:13)
[2021-04-25] MEDS: heparin, porcine 5000 units/ml vial SQ SCH ×2 (07:54→19:13)
[2021-04-25] MEDS: ferrous sulfate 325mg tablet PO SCH (07:55)
[2021-04-25] MEDS: K and/or MAG REPLACEMENT MC SCH ×2 (07:55→18:41)
[2021-04-25] MEDS: METHYLCELLULOSE 500 MG PO SCH (07:55)
[2021-04-25] MEDS: atorvastatin 20mg tablet PO SCH (07:55)
[2021-04-25] MEDS: lactobacillus rhamnosus 10,000 MMU CELLS/CAPSULE PO SCH (07:55)
[2021-04-25] MEDS: cyanocobalamin 500mcg tablet PO SCH (07:55)
[2021-04-25] MEDS ORDERED: midodrine 5mg tablet PO PRN (08:37)
[2021-04-25] MEDS: morphine 2 MG/ML inj. syringe IV PRN (09:39)
[2021-04-25] MEDS ORDERED: acetaminophen 325mg tablet NG PRN ×2 (10:29→10:30)
[2021-04-25] MEDS ORDERED: midodrine 5mg tablet NG PRN (10:33)
[2021-04-25] MEDS ORDERED: magnesium hydroxide 30ml (MOM) UD suspension NG PRN (10:33)
[2021-04-25] MEDS ORDERED: proCHLORperazine 10mg tablet NG PRN (10:34)
[2021-04-25] MEDS ORDERED: POTASSIUM BICARB 20meq eff tab 20 MEQ TABLET.EFF NG ONE (10:45)
[2021-04-25] MEDS ORDERED: POTASSIUM BICARBONATE/CIT AC 10 MEQ TABLET.EFF NG ONE (11:35)
--- NOTE | 2021-04-25 11:51 | NUR ---
TF/Darshan Consult: Pt s/p rapid response last night DX septic shock, SAAD, and lactic acidosis. Darshan 12 w/ skin intact per EMR. Pt has severe weakness unsafe for PO per SUPERVISOR FUR DRESSING recs this AM pending NG placement w/ TF to start per machine hoop maker. TF recs below given DX and taking into consideration hx chemotherapy for colon CA s/p third treatment CTRS. Noted pt receiving Na-bicarb/D5 at 200ml/hr providing additional 816 kcals/day. RD d/w RN regarding change from D5 if MD agreeable to optimize nutrition intake via EN. TF recs below for once off D5 as well. LBM 04/24 per EMR. Will monitor for TF tolerance and adjustment needs this admit. Recommendations: 1) Continuous TF per MD using Vital AF at 70ml/hr goal; to provide 1680ml volume, 2016 kcals, 1361ml free water, and 126g protein. 2) IF pt off D5 at 200ml/hr; advance Vital AF to 90ml/hr goal; would provide 2160ml volume, 2592 kcals, 1750ml free water, and 162g protein. 3) additional water flush 200ml Q4H 4) PALB Q /; daily wts 5) Bowel care per rx 6) advance PO diet as medically indicated to regular per SUPERVISOR FUR DRESSING/MD recs 7) Once PO diet advanced to at least full liquids; resume prior Ensure ONS and smoothie/shakes w/ meals Addendum: 04/25/21 at [address] Amended: Links added.
[2021-04-25 13:16] LABS: PREALBUMIN 7.8 MG/DL (19-36)
[2021-04-25 16:34] LABS: TOTAL PROTEIN,URINE RANDOM 38.9 MG/DL
[2021-04-25 16:46] LABS: SODIUM,URINE RANDOM < 15 MEQ/L
[2021-04-25 16:53] LABS: CLARITY,URINE CLOUDY (Clear); COLOR,URINE DARK YELLOW (Yellow); UA COLLECTION TYPE FOLEY CATH
[2021-04-25 16:54] LABS: GLUCOSE, URINE NEGATIVE (Neg); KETONES,URINE NEGATIVE (Neg); NITRITES, URINE NEGATIVE (Neg); OCCULT BLOOD,URINE NEGATIVE (Neg); PROTEIN,URINE NEGATIVE (Neg)
[2021-04-25 16:55] LABS: LEUKOCYTE ESTERASE ,URINE NEGATIVE (Neg); UROBILINOGEN,URINE 0.2 E.U/dL (0.2-1.0)
[2021-04-25 17:09] LABS: COARSE GRANULAR CAST 0-3 /LPF (NEGATIVE); FINE GRANULAR CAST 0-3 /LPF (NEGATIVE)
[2021-04-25 17:10] LABS: YEAST MANY /HPF (NEGATIVE)
[2021-04-25 17:11] LABS: MUCUS STRANDS FEW /LPF (Neg); SQUAMOUS EPITHELIAL CELL,UR NONE SEEN /LPF (FEW)
[2021-04-25 17:12] LABS: BACTERIA,URINE FEW /HPF (Neg); RBC,URINE NONE SEEN /HPF (0-2); WBC,URINE NONE SEEN /HPF (0-4)
[2021-04-25] MEDS: lactose-reduced food (Ensure Enlive) - 237ml bottle NG SCH (17:30)
--- NOTE | 2021-04-25 18:05 | NUR ---
Patient in room ICU 2038. I have received report from Maurice CHAVARRIA at bedside and had the opportunity to ask questions and assume patient care.
[2021-04-25 18:53] LABS: UA EOSINOPHILS NO EOS /HPF
[2021-04-25] MEDS: ferrous sulfate 300mg/5ml UD oral liquid PO SCH (20:00)
[2021-04-25] MEDS: cyanocobalamin 500mcg tablet NG SCH (20:00)
[2021-04-25] MEDS: lactobacillus rhamnosus 10,000 MMU CELLS/CAPSULE NG SCH (20:00)
--- NOTE | 2021-04-25 20:17 | NUR ---
Patient was being combative stated "out of my room" when attempt to insert NG tube. Patient's currently has no NG tube placement at this time.
[2021-04-25] MEDS ORDERED: normal saline 1000ml 1,000 ML IVB ONE ×2 (21:05)
--- NOTE | 2021-04-25 22:38 | NUR ---
Attempted to insert NG tube multiple times with charge nurse, not able to insert. Dr. Mustafa aware.
[2021-04-26] VITALS (24 sets, daily range): BP systolic 75–103; BP diastolic 46–65
[2021-04-26] MEDS: morphine 4 MG/ML inj SYRINge IV PRN (00:18)
[2021-04-26] MEDS ORDERED: normal saline 1000ml 1,000 ML IVB ONE (01:00)
[2021-04-26 02:08] LABS: BASOPHILS % (AUTO) 0.1 % (0-1); EOSINOPHILS # (AUTO) 0.1 X10'3 (0-0.9); HEMATOCRIT 27.6 % (42.0-52.0); MEAN CORPUSCULAR HEMOGLOBIN 31.8 PG (27.0-31.0)
[2021-04-26 02:10] LABS: EOSINOPHILS % (AUTO) 0.9 % (0-6); HEMOGLOBIN 9.4 g/dl (14.0-17.9); LYMPHOCYTES % (AUTO) 16.9 % (21-51); MEAN CORPUSCULAR HGB CONC 33.9 g/dL (33.0-36.5); MEAN CORPUSCULAR VOLUME 93.7 FL (78-98); MEAN PLATELET VOLUME 8.6 FL (7.4-10.4); MONOCYTES # (AUTO) 0.4 X10'3 (0-0.9); MONOCYTES % (AUTO) 6.4 % (2-12); NEUTROPHILS # (AUTO) 4.4 X10'3 (1.8-7.7); NEUTROPHILS % (AUTO) 75.7 % (42-75); PLATELET COUNT 138 X10'3 (140-440); RED BLOOD COUNT 2.95 X10'6 (4.70-6.10); WHITE BLOOD COUNT 5.8 X10'3 (4.5-11.0)
[2021-04-26 02:24] LABS: ALANINE AMINOTRANSFERASE 11 U/L (12-78); ALBUMIN 0.9 G/DL (3.4-5.0); ALBUMIN/GLOBULIN RATIO 0.4 (1.1-1.5); ALKALINE PHOSPHATASE 57 IU/L (46-116); ANION GAP 9 (8-16); ASPARTATE AMINO TRANSFERASE 12 U/L (10-37); BILIRUBIN,TOTAL 0.4 MG/DL (0.1-1.0); BLOOD UREA NITROGEN 23 MG/DL (7-18); BUN/CREATININE RATIO 13.5 (5.4-32.0); CALCIUM 6.5 MG/DL (8.5-10.1); CHLORIDE 123 MMOL/L (99-107); CREATININE 1.71 MG/DL (0.60-1.10); GLUCOSE 93 MG/DL (70-104); MAGNESIUM 1.7 MG/DL (1.5-2.4); POTASSIUM 3.2 MMOL/L (3.5-5.1); SODIUM 148 MMOL/L (135-145); TOTAL CARBON DIOXIDE 16.4 MMOL/L (24-32); TOTAL PROTEIN 3.2 G/DL (6.4-8.2); eGFR 39 ML/MIN
[2021-04-26 03:57] LABS: TOTAL CELLS COUNTED 100
[2021-04-26 03:58] LABS: BANDS% (MANUAL) 10 % (0-10); LYMPHOCYTES % (MANUAL) 29 % (21-51); METAMYLEOCYTES% (MANUAL) 1 % (0-0); MONOCYTES % (MANUAL) 3 % (2-12); NEUTROPHILS % (MANUAL) 58 % (42-75); NUCLEATED RED BLOOD CELLS 5 /100WBC (0-0); PLATELET ESTIMATE NORMAL
[2021-04-26] MEDS: sodium bicarbonate (8.4%) inj. 50 MEQ in dextrose 5%-water 1,000 ML IV SCH ×4 (04:40→20:27)
[2021-04-26] MEDS: potassium Cl 40MEQ/250ML bag 270 ML IV PRN (04:41)
--- NOTE | 2021-04-26 06:18 | NUR ---
Problems reprioritized. Patient report given, questions answered & plan of care reviewed with Naheed CHAVARRIA at bedside.
[2021-04-26] MEDS: lactose-reduced food (Ensure Enlive) - 237ml bottle NG SCH ×2 (07:30→17:30)
[2021-04-26] MEDS: K and/or MAG REPLACEMENT MC SCH ×2 (08:00→19:53)
[2021-04-26] MEDS: atorvastatin 20mg tablet NG SCH (08:00)
[2021-04-26] MEDS: lactobacillus rhamnosus 10,000 MMU CELLS/CAPSULE NG SCH ×2 (08:00→19:54)
[2021-04-26] MEDS: METHYLCELLULOSE 500 MG NG SCH (08:00)
[2021-04-26] MEDS: ferrous sulfate 300mg/5ml UD oral liquid PO SCH ×2 (08:00→19:54)
[2021-04-26] MEDS: cyanocobalamin 500mcg tablet NG SCH ×2 (08:00→19:54)
[2021-04-26] MEDS: metroNIDAZOLE-Flagyl 500mg/NS 100 ML IV SCH ×3 (08:12→23:20)
[2021-04-26] MEDS: heparin, porcine 5000 units/ml vial SQ SCH ×2 (08:12→19:40)
[2021-04-26] MEDS: ciprofloxacin lact 400MG/200ML 200 ML IV SCH ×2 (08:12→19:32)
--- NOTE | 2021-04-26 09:45 | NUR ---
500ml NS bolus per MD d/t CVP 1
[2021-04-26] MEDS: morphine 2 MG/ML inj. syringe IV PRN ×2 (09:53→15:18)
--- NOTE | 2021-04-26 10:37 | NUR ---
R/T inserted per MD Mustafa d/t multiple liquid stools
--- NOTE | 2021-04-26 10:37 | NUR ---
Spoke with son and daughter of patient at bedside. They would like to speak with case therapist re: hospice or comfort care. Paged CM
--- NOTE | 2021-04-26 11:38 | NUR ---
F/u 04/26: Pt refused corpak placement yesterday remains NPO per PATTERN ASSEMBLER recs. Pending family discussion w/ CM regarding hospice or comfort measures per RN note following rounds this AM. Dietary notified of NPO status. Will continue to monitor. Recommendations: 1)IF TF; Vital AF at 70ml/hr goal; to provide 1680ml volume, 2016 kcals, 1361ml free water, and 126g protein. 2) IF TF and off D5 at 200ml/hr; Vital AF to 90ml/hr goal; would provide 2160ml volume, 2592 kcals, 1750ml free water, and 162g protein. 3) Bowel care per rx 4) advance PO diet as medically indicated to regular per PATTERN ASSEMBLER/MD recs 5) monitor for changes in code status Addendum: 04/26/21 at [address] Amended: Links added.
[2021-04-26] MEDS ORDERED: normal saline 1000ml 1,000 ML IV ONE ×2 (15:00→16:25)
--- NOTE | 2021-04-26 17:21 | NUR ---
Pt has had multiple family members in room today. Family is talking comfort care. Education in great detail re: patients condition. They would like to wait until tomorrow morning when patients sister comes to visit until making any final decisions. Pt has had multiple liquid stools that was relieved with insertion of R/T. Pt has had 2500ml worth of NS boluses per MD orders. Will continue to monitor.
--- NOTE | 2021-04-26 18:15 | NUR ---
Problems reprioritized. Patient report given, questions answered & plan of care reviewed with DEON Lima.
[2021-04-27] VITALS (15 sets, daily range): BP systolic 80–110; BP diastolic 49–62
[2021-04-27] MEDS: sodium bicarbonate (8.4%) inj. 50 MEQ in dextrose 5%-water 1,000 ML IV SCH ×2 (01:55→06:48)
[2021-04-27 03:22] LABS: HEMOGLOBIN 9.6 g/dl (14.0-17.9); PLATELET COUNT 118 X10'3 (140-440)
[2021-04-27 03:24] LABS: HEMATOCRIT 28.1 % (42.0-52.0); MEAN CORPUSCULAR HEMOGLOBIN 32.5 PG (27.0-31.0); MEAN CORPUSCULAR HGB CONC 34.2 g/dL (33.0-36.5); MEAN PLATELET VOLUME 8.9 FL (7.4-10.4); RED BLOOD COUNT 2.96 X10'6 (4.70-6.10); RED CELL DISTRIBUTION WIDTH 19.2 % (11.5-14.5); WHITE BLOOD COUNT 6.9 X10'3 (4.5-11.0)
[2021-04-27 03:40] LABS: ALANINE AMINOTRANSFERASE 13 U/L (12-78); ALBUMIN 0.7 G/DL (3.4-5.0); ALBUMIN/GLOBULIN RATIO 0.3 (1.1-1.5); ALKALINE PHOSPHATASE 57 IU/L (46-116); ANION GAP 9 (8-16); ASPARTATE AMINO TRANSFERASE 13 U/L (10-37); BILIRUBIN,TOTAL 0.4 MG/DL (0.1-1.0); BLOOD UREA NITROGEN 17 MG/DL (7-18); BUN/CREATININE RATIO 11.3 (5.4-32.0); CALCIUM 6.4 MG/DL (8.5-10.1); CHLORIDE 119 MMOL/L (99-107); CREATININE 1.51 MG/DL (0.60-1.10); GLUCOSE 102 MG/DL (70-104); SODIUM 149 MMOL/L (135-145); TOTAL CARBON DIOXIDE 21.1 MMOL/L (24-32); TOTAL PROTEIN 3.1 G/DL (6.4-8.2); eGFR 45 ML/MIN
[2021-04-27 03:49] LABS: POTASSIUM 2.8 MMOL/L (3.5-5.1)
[2021-04-27 04:08] LABS: ANISOCYTOSIS 2+; PLATELET ESTIMATE DECREASED; POLYCHROMASIA FEW; TOTAL CELLS COUNTED 100
[2021-04-27] MEDS: potassium Cl 40MEQ/250ML bag 270 ML IV PRN ×2 (04:38→09:18)
--- NOTE | 2021-04-27 06:38 | NUR ---
Problems reprioritized. Patient report given, questions answered & plan of care reviewed with DEON Dc.
--- NOTE | 2021-04-27 06:39 | NUR ---
Patient in room ICU 2038. I have received report from Janie CHAVARRIA and had the opportunity to ask questions and assume patient care.
[2021-04-27] MEDS: lactose-reduced food (Ensure Enlive) - 237ml bottle NG SCH ×2 (07:30→14:16)
[2021-04-27] MEDS: atorvastatin 20mg tablet NG SCH (07:34)
[2021-04-27] MEDS: lactobacillus rhamnosus 10,000 MMU CELLS/CAPSULE NG SCH (07:34)
[2021-04-27] MEDS: cyanocobalamin 500mcg tablet NG SCH (07:35)
[2021-04-27] MEDS: METHYLCELLULOSE 500 MG NG SCH (07:35)
[2021-04-27] MEDS: ferrous sulfate 300mg/5ml UD oral liquid PO SCH (07:35)
[2021-04-27] MEDS: K and/or MAG REPLACEMENT MC SCH (07:38)
[2021-04-27] MEDS: metroNIDAZOLE-Flagyl 500mg/NS 100 ML IV SCH (07:47)
[2021-04-27] MEDS: heparin, porcine 5000 units/ml vial SQ SCH (07:47)
[2021-04-27] MEDS: ciprofloxacin lact 400MG/200ML 200 ML IV SCH (08:57)
[2021-04-27] MEDS ORDERED: morphine 10mg/ml inj. IV PRN (12:45)
[2021-04-27] MEDS: morphine 10mg/0.5ml (conc. morphine) oral syringe PO PRN ×2 (13:00→21:31)
[2021-04-27] MEDS: LORazepam 2 mg/ml vial IV PRN ×3 (13:00→19:08)
--- NOTE | 2021-04-27 14:26 | NUR ---
Nutrition consult re: clear liquid diet education. Pt remains NPO per ST recs and pt documented as A/O x 2 and confused, education not appropriate at this time. Noted patient's code status has been changed to DNR with comfort care. [facility] 04/27. Will continue to follow per LOS. Recommendations: 1) Bowel care per comfort care measures Addendum: 04/27/21 at [address] Amended: Links added.
[2021-04-27] MEDS: morphine 4 MG/ML inj SYRINge IV PRN ×2 (15:04→19:09)
--- NOTE | 2021-04-27 15:30 | NUR ---
Report received from MUSICAL INSTRUMENT MECHANIC
--- NOTE | 2021-04-27 16:00 | NUR ---
Problems reprioritized. Patient report given, questions answered & plan of care reviewed with Neema RN.
[2021-04-28] MEDS: morphine 10mg/0.5ml (conc. morphine) oral syringe PO PRN (00:59)
[2021-04-28] MEDS: LORazepam 2 mg/ml vial IV PRN ×4 (01:50→22:51)
--- NOTE | 2021-04-28 06:35 | NUR ---
Problems reprioritized. Patient report given, questions answered & plan of care reviewed with DEON Bolden.
[2021-04-28 08:00] VITALS: BP 67/39
[2021-04-28] MEDS: morphine 4 MG/ML inj SYRINge IV PRN ×2 (11:42→17:10)
--- NOTE | 2021-04-28 18:49 | NUR ---
Problems reprioritized. Patient report given, questions answered & plan of care reviewed with DEON Winters.
--- NOTE | 2021-04-28 19:00 | NUR ---
Patient remains DNR Comfort care. Family at bedside constantly for support.
[2021-04-29] MEDS: morphine 4 MG/ML inj SYRINge IV PRN ×3 (05:59→23:02)
[2021-04-29 08:00] VITALS: BP 89/55
[2021-04-29] MEDS: morphine 10mg/0.5ml (conc. morphine) oral syringe PO PRN ×3 (11:00→15:32)
[2021-04-29] MEDS: LORazepam 2 mg/ml vial IV PRN ×2 (12:05→18:42)
--- NOTE | 2021-04-29 14:50 | NUR ---
Student documentation: I have reviewed all interventions, assessments performed and documentation by Wilma BUTCHER from [facility] program. Student Medication Administration: For all medication-pass' in the time frame of 7274-7438, all medication were reviewed, dispensed, administered and documented per hospital policy by Wilma BUTCHER from [facility] program.
[2021-04-30] MEDS: morphine 4 MG/ML inj SYRINge IV PRN ×6 (02:37→23:24)
--- NOTE | 2021-04-30 06:10 | NUR ---
Patient in room GHADA 351. I have received report from Parag CHAVARRIA with Kinza CHAVARIRA and had the opportunity to ask questions and assume patient care.
--- NOTE | 2021-04-30 06:55 | NUR ---
Problems reprioritized. Patient report given, questions answered & plan of care reviewed with [facility]. Addendum: 04/30/21 at 0656 by Steven Trujillo RN Amended: Links added.
--- NOTE | 2021-04-30 06:58 | NUR ---
Patient in room GHADA 351. I have received report from Kentrell CHAVARRIA and had the opportunity to ask questions and assume patient care.
[2021-04-30 08:00] VITALS: BP 118/67
[2021-04-30] MEDS: LORazepam 2 mg/ml vial IV PRN (11:39)
--- NOTE | 2021-04-30 13:18 | NUR ---
Wound care note: Wound care was asked to see patient regarding a low noy skin assessment. This patient is on comfort care and is looking to be actively dying. Family present who reports no skin issues needing attention. I spoke with the primary nurse who confirms this. I do not see any photo's of any skin issues as well. Wound care is available if any needs arise.
[2021-04-30] MEDS: morphine 10mg/0.5ml (conc. morphine) oral syringe PO PRN (19:45)
--- NOTE | 2021-04-30 19:46 | NUR ---
family requesting Roxinol for restlessness
[2021-05-01 07:00] VITALS: BP 101/51
[2021-05-01] MEDS: morphine 4 MG/ML inj SYRINge IV PRN ×4 (08:28→22:22)
[2021-05-01] MEDS: LORazepam 2 mg/ml vial IV PRN ×2 (11:54→19:20)
--- NOTE | 2021-05-01 18:52 | NUR ---
Problems reprioritized. Patient report given, questions answered & plan of care reviewed with Ora Payan RN.
[2021-05-01 20:00] VITALS: BP 83/47
[2021-05-02] MEDS: morphine 4 MG/ML inj SYRINge IV PRN ×4 (03:10→17:42)
[2021-05-02] MEDS: LORazepam 2 mg/ml vial IV PRN ×4 (05:04→20:47)
[2021-05-02 12:12] VITALS: BP 85/39
--- NOTE | 2021-05-02 16:01 | NUR ---
Rectal tube leaking, replaced with new one. Patient tolerated well. Will continue to monitor.
--- NOTE | 2021-05-02 18:08 | NUR ---
Problems reprioritized. Patient report given, questions answered & plan of care reviewed with DEON Galo.
--- NOTE | 2021-05-02 18:30 | NUR ---
Patient in room GHADA 351. I have received report from TESSIE CHAVARRIA and had the opportunity to ask questions and assume patient care.
--- NOTE | 2021-05-02 19:00 | NUR ---
SON IN LAW AT BEDSIDE WITH PATIENT ON COMFORT CARE.
[2021-05-02 20:00] VITALS: BP 74/45
[2021-05-03] MEDS: morphine 4 MG/ML inj SYRINge IV PRN (00:34)
--- NOTE | 2021-05-03 01:00 | NUR ---
PATIENT NOTED WITH VERY SHALLOW BREATHING. SON IN LAW AT BEDSIDE.
--- NOTE | 2021-05-03 03:40 | NUR ---
PATIENT CEASED BREATHING, NO MORE PULSE, BP NOT APPRECIATED, PUPILS NON REACTIVE TO LIGHT.
--- NOTE | 2021-05-03 04:00 | NUR ---
EKG STRIP RUN DONE WITH ASYSTOLE REPORT, PATIENT .
--- NOTE | 2021-05-03 04:05 | NUR ---
SON IN LAW WAS WITH THE PATIENT THE WHOLE NIGHT AND WILL INFORM THE WHOLE FAMILY OF HIS .
--- NOTE | 2021-05-03 04:20 | NUR ---
DR. MARAVILLA CALLED AND WAS INFORMED OF THE PATIENT'S .
--- NOTE | 2021-05-03 04:30 | NUR ---
NURSING BRUSH MAKER AVI CHAVARRIA WAS INFORMED BY CHARGE NURSE OF PATIENT'S .
--- NOTE | 2021-05-03 05:00 | NUR ---
CALLED [employer] AND WAS INFORMED OF PATIENT'S BODY FOR [employer].
== END 2021-05-03 04:00 | DRG 871 ==
LOC: ER 16:25 → ED HOLD 20:22 → PCU 3S 04-19 15:00 → ICU 2S 04-24 15:25 → SUR 3N 04-27 15:58
PROVIDERS: ADMIT Emergency Medicine; ATTEND Emergency Medicine
PROC: BW211ZZ Computerized Tomography (CT Scan) of Abdomen and Pelvis using Low Osmolar Contrast (ICD-10-PCS; principal; 2021-04-18)
DX: A41.9 Sepsis, unspecified organism (principal); R65.21 Severe sepsis with septic shock; K56.7 Ileus, unspecified; C19 Malignant neoplasm of rectosigmoid junction; D68.9 Coagulation defect, unspecified; N17.9 Acute kidney failure, unspecified; E46 Unspecified protein-calorie malnutrition; E87.2 Acidosis; E87.0 Hyperosmolality and hypernatremia; E87.6 Hypokalemia; D64.9 Anemia, unspecified; E78.5 Hyperlipidemia, unspecified; E87.8 Other disorders of electrolyte and fluid balance, not elsewhere classified; Z51.5 Encounter for palliative care; I95.9 Hypotension, unspecified; Z66 Do not resuscitate; I12.9 Hypertensive chronic kidney disease with stage 1 through stage 4 chronic kidney disease, or unspecified chronic kidney disease; N18.30 Chronic kidney disease, stage 3 unspecified; K52.9 Noninfective gastroenteritis and colitis, unspecified; T50.905A Adverse effect of unspecified drugs, medicaments and biological substances, initial encounter; F17.200 Nicotine dependence, unspecified, uncomplicated; Z20.822 Contact with and (suspected) exposure to COVID-19; I25.10 Atherosclerotic heart disease of native coronary artery without angina pectoris; R59.0 Localized enlarged lymph nodes; Z90.49 Acquired absence of other specified parts of digestive tract; Z95.5 Presence of coronary angioplasty implant and graft; Z88.0 Allergy status to penicillin; Z68.22 Body mass index [BMI] 22.0-22.9, adult; Z79.899 Other long term (current) drug therapy; Y92.89 Other specified places as the place of occurrence of the external cause; W18.39XA Other fall on same level, initial encounter; Y93.89 Activity, other specified; Y92.230 Patient room in hospital as the place of occurrence of the external cause; Y99.8 Other external cause status
CPT/HCPCS: 36415; 36600; 70450; 71045; 71250; 74176; 74177; 76937; 80053; 81001; 82570; 82803; 82810; 83605; 83690; 83735; 84132; 84134; 84145; 84156; 84300; 84443; 84484; 85007; 85018; 85025; 85610; 86885; 86900; 86901; 87040; 87081; 87088; 87207; 87635; 92508; 92616; 93005; 93971; 94760; 94799; 96361; 96365; 96375; 97110; 97112; 97161; 97530; 99285; C9113; G0378; J0456; J0692; J0696; J0744; J1644; J2060; J2250; J2270; J3370; J3480; J3490; J7030; J7040; J7070; J7120; Q9963; Q9967